=== PATIENT | male | born 1980 | race Hispanic/Latino ===

== ENCOUNTER 2021-07-30 13:11 | Emergency (ER) | payer SELFPAY ==
--- NOTE | 2021-07-30 13:41 | ER ---
Nurse's Notes [facility] Name: Del Peoples Age: 41 yrs Sex: Male : 1980 Arrival Date: 07/30/2021 Time: 13:13 Bed 9 Private MD: Diagnosis: Other infective otitis externa, left ear Presentation: 07/30 13:23 Chief complaint: Patient states: left ear pain since yesterday and throat is hurting. iw Coronavirus screen: At this time, the client does not indicate any symptoms associated with coronavirus-19. Ebola Screen: Patient negative for fever greater than or equal to 101.5 degrees Fahrenheit, and additional compatible Ebola Virus Disease symptoms Patient denies exposure to infectious person. Patient denies travel to an Ebola-affected area in the 21 days before illness onset. No symptoms or risks identified at this time. Initial Sepsis Screen: Does the patient meet any 2 criteria? No. Patient's initial sepsis screen is negative. Does the patient have a suspected source of infection? No. Patient's initial sepsis screen is negative. Risk Assessment: Do you want to hurt yourself or someone else? Patient reports no desire to harm self or others. Onset of symptoms was July 29, 2021. 13:23 Method Of Arrival: Ambulatory iw 13:23 Acuity: ISRA 4 iw Historical: - Allergies: 13:24 No Known Allergies; iw - Home Meds: 13:24 None [Active]; iw - PMHx: 13:24 None; iw - PSHx: 13:24 None; iw - Immunization history:: Adult Immunizations unknown, Client reports having NOT received the Covid vaccine. - Social history:: Smoking status: Patient denies any tobacco usage or history of. Screenin:25 Abuse screen: Denies threats or abuse. Nutritional screening: No deficits noted. tw2 Tuberculosis screening: No symptoms or risk factors identified. Fall Risk None identified. Assessment: 13:24 General: Appears in no apparent distress. Behavior is calm, cooperative, appropriate tw2 for age. Pain: Pain: Complains of pain in left ear. 13:31 Neuro: Level of Consciousness is awake, alert, obeys commands, Oriented to person, tw2 place, time, situation. Respiratory: Airway is patent Respiratory effort is even, unlabored, Respiratory pattern is regular, symmetrical. EENT: Reports pain in left ear. 13:33 Reassessment: provider at bedside at this time. tw2 13:46 Reassessment: Patient appears in no apparent distress at this time. No changes from tw2 previously documented assessment. Patient and/or family updated on plan of care and expected duration. Pain level reassessed. Patient is alert, oriented x 3, equal unlabored respirations, skin warm/dry/pink. Vital Signs: 13:23 BP 127 / 77; Pulse 76; Resp 16; Temp 99.1; Pulse Ox 96% on R/A; Weight 99.79 kg; Height iw 5 ft. 10 in. (177.80 cm); 13:23 Body Mass Index 31.57 (99.79 kg, 177.80 cm) iw ED Course: 13:13 Patient arrived in ED. as 13:24 Triage completed. iw 13:24 Bed in low position. Call light in reach. tw2 13:25 Mimi Ramirez RN is Primary Nurse. tw2 13:28 Nba Mauro PA is PHCP. jr8 13:28 Mio Son MD is Attending Physician. jr8 13:30 Arm band placed on. tw2 13:46 No provider procedures requiring assistance completed. Patient did not have IV access tw2 during this emergency room visit. Administered Medications: No medications were administered Outcome: 13:40 Discharge ordered by . jr8 13:46 Discharged to home ambulatory. tw2 13:46 Condition: stable 13:46 Discharge instructions given to patient, Instructed on discharge instructions, follow up and referral plans. medication usage, Demonstrated understanding of instructions, follow-up care, medications, Prescriptions given X 1. 13:46 Patient left the ED. tw2 Signatures: Maria De Jesus Gutierrez Irene RN RN iw Nba Mauro PA PA jr8 Mimi Ramirez RN RN tw2 Corrections: (The following items were deleted from the chart) 13:24 13:24 PSHx: Unable to Obtain; iw iw 13:32 13:24 Pain: tw2 tw2
--- NOTE | 2021-07-30 13:41 | EDPHYS ---
Physician Documentation [facility] Name: Del Peoples Age: 41 yrs Sex: Male : 1980 Arrival Date: 07/30/2021 Time: 13:13 Bed 9 Private MD: ED Physician Mio Son HPI: 07/30 13:38 This 41 yrs old Male presents to ER via Ambulatory with complaints of Ear Pain.jr8 13:38 The patient presents with pain, tenderness. The complaints affect the left ear. Onset: jr8 The symptoms/episode began/occurred gradually, 2 day(s) ago. Modifying factors: The symptoms are alleviated by nothing, the symptoms are aggravated by touching. Associated signs and symptoms: The patient has no apparent associated signs or symptoms. Severity of symptoms: At their worst the symptoms were moderate in the emergency department the symptoms are unchanged. The patient has not experienced similar symptoms in the past. The patient has not recently seen a physician. Historical: - Allergies: 13:24 No Known Allergies; iw - Home Meds: 13:24 None [Active]; iw - PMHx: 13:24 None; iw - PSHx: 13:24 None; iw - Immunization history:: Adult Immunizations unknown, Client reports having NOT received the Covid vaccine. - Social history:: Smoking status: Patient denies any tobacco usage or history of. ROS: 13:38 Eyes: Negative for injury, pain, redness, and discharge, Neck: Negative for injury, jr8 pain, and swelling, Cardiovascular: Negative for chest pain, palpitations, and edema, Respiratory: Negative for shortness of breath, cough, wheezing, and pleuritic chest pain, Abdomen/GI: Negative for abdominal pain, nausea, vomiting, diarrhea, and constipation, Back: Negative for injury and pain, MS/Extremity: Negative for injury and deformity, Skin: Negative for injury, rash, and discoloration, Neuro: Negative for headache, weakness, numbness, tingling, and seizure. 13:38 ENT: Positive for drainage from ear(s), ear pain. Exam: 13:38 Constitutional: This is a well developed, well nourished patient who is awake, alert, jr8 and in no acute distress. Head/Face: Normocephalic, atraumatic. Neck: Trachea midline, no thyromegaly or masses palpated, and no cervical lymphadenopathy. Supple, full range of motion without nuchal rigidity, or vertebral point tenderness. No Meningismus. Cardiovascular: Regular rate and rhythm with a normal S1 and S2. No gallops, murmurs, or rubs. Normal PMI, no JVD. No pulse deficits. Respiratory: Lungs have equal breath sounds bilaterally, clear to auscultation and percussion. No rales, rhonchi or wheezes noted. No increased work of breathing, no retractions or nasal flaring. Skin: Warm, dry with normal turgor. Normal color with no rashes, no lesions, and no evidence of cellulitis. MS/ Extremity: Pulses equal, no cyanosis. Neurovascular intact. Full, normal range of motion. Neuro: Awake and alert, GCS 15, oriented to person, place, time, and situation. Cranial nerves II-XII grossly intact. Motor strength 5/5 in all extremities. Sensory grossly intact. 13:38 ENT: External ear(s): pain with movement, that is moderate, of the left ear lobe and left ear canal, Ear canal(s): erythema, that is moderate, of the left canal, purulent discharge, that is moderate, in the left canal, swelling, that is moderate, of the left canal, TM's: are normal, Examination of the other ear shows no obvious abnormality, Nose: is normal, Mouth: is normal, Posterior pharynx: is normal. Vital Signs: 13:23 BP 127 / 77; Pulse 76; Resp 16; Temp 99.1; Pulse Ox 96% on R/A; Weight 99.79 kg; Height iw 5 ft. 10 in. (177.80 cm); 13:23 Body Mass Index 31.57 (99.79 kg, 177.80 cm) iw MDM: 13:28 Patient medically screened. [facility] 13:38 Data reviewed: vital signs, nurses notes, and as a result, I will discharge patient. jr8 Data interpreted: Pulse oximetry: on room air is 96 %. Interpretation: normal. Counseling: I had a detailed discussion with the patient and/or guardian regarding: the historical points, exam findings, and any diagnostic results supporting the discharge/admit diagnosis, the need for outpatient follow up, a family practitioner, to return to the emergency department if symptoms worsen or persist or if there are any questions or concerns that arise at home. Administered Medications: No medications were administered Disposition: 17:25 Co-signature as Attending Physician, Mio Son MD I agree with the assessment and kdr plan of care. Disposition Summary: 07/30/21 13:40 Discharge Ordered Location: Home jr8 Problem: new jr8 Symptoms: have improved jr8 Condition: Stable jr8 Diagnosis - Other infective otitis externa, left ear jr8 Followup: jr8 - With: Private Physician - When: 2 - 3 days - Reason: Recheck today's complaints, Continuance of care, Re-evaluation by your physician Discharge Instructions: - Ear Drops, Adult jr8 - Otitis Externa jr8 - Discharge Summary Sheet tw2 Forms: - Medication Reconciliation Form jr8 - Thank You Letter jr8 - Work release form tw2 - Antibiotic Education jr8 - Prescription Opioid Use jr8 Prescriptions: - Ciprodex 0.3-0.1 % Otic Drops, Suspension - instill 4 drops by OTIC route every 12 hours for 7 days , for ears ONLY; 1 jr8 Container; Refills: 0, Product Selection Permitted Signatures: Mio Son MD MD kdr Gwen Conklin, DIONY RN iw Nba Mauro PA PA jr8 Corrections: (The following items were deleted from the chart) 13:24 13:24 PSHx: Unable to Obtain; zarina srinivasan
[2021-07-30 13:55] VITALS: BP 127/77; TEMP 99.1; O2SAT 96
== END 2021-07-30 13:46 | disposition home or self-care (01) ==
LOC: ER 13:11
DX: H60.392 Other infective otitis externa, left ear (principal)
CPT/HCPCS: 99282

== ENCOUNTER 2022-04-07 18:55 | Emergency (ER) | payer SELFPAY ==
[2022-04-07] MEDS ORDERED: TETANUS & DIPHTHERIA TOX,ADULT 0.5 ML VIAL ONE (20:11)
[2022-04-07] MEDS ORDERED: HYDROCODONE/APAP 7.5/325 MG TAB ONE (21:10)
[2022-04-07] MEDS ORDERED: IBUPROFEN 400 MG TAB ONE (21:10)
--- NOTE | 2022-04-07 21:11 | RAD REPORT ---
EXAM DESCRIPTION: RAD - Hand Left 3 View - 04/07/2022 8:56 pm CLINICAL HISTORY: DEFORMITY COMPARISON: No comparisons FINDINGS: Soft tissue swelling affects the third finger. Fracture is present involving the distal ph alanx of the third finger.
[2022-04-07] MEDS ORDERED: LIDOCAINE 1% MPF 5 ML VIAL ONE (21:53)
[2022-04-07] MEDS ORDERED: BUPIVACAINE 0.5% PF 10 ML VIAL ONE (21:53)
[2022-04-07] MEDS ORDERED: CEFAZOLIN SODIUM 1 GM/VIAL ONE (23:22)
[2022-04-07] MEDS ORDERED: HYDROCODONE/APAP 5/325 MG TAB ONE (23:23)
[2022-04-07] MEDS ORDERED: WATER FOR INJ,STERILE 10 ML ONE (23:25)
--- NOTE | 2022-04-07 23:30 | ER ---
Nurse's Notes [facility] Name: Del Peoples Age: 42 yrs Sex: Male : 1980 Arrival Date: 04/07/2022 Time: 18:58 Bed DIS5 Private MD: Diagnosis: Displaced fracture of distal phalanx of left middle finger-open Presentation: 04/07 19:23 Chief complaint: Patient states: PATIENT REPORTS SMASHING HIS LEFT 3RD FINGER IN SOME [facility] WEIGHTS AROUND 5 PM TODAY AT GYM. Coronavirus screen: Vaccine status: Patient reports receiving the 2nd dose of the covid vaccine. At this time, the client does not indicate any symptoms associated with coronavirus-19. Ebola Screen: Patient negative for fever greater than or equal to 101.5 degrees Fahrenheit, and additional compatible Ebola Virus Disease symptoms. Initial Sepsis Screen: Does the patient meet any 2 criteria? No. Patient's initial sepsis screen is negative. Does the patient have a suspected source of infection? No. Patient's initial sepsis screen is negative. Risk Assessment: Do you want to hurt yourself or someone else? Patient reports no desire to harm self or others. Onset of symptoms was April 07, 2022. 19:23 Method Of Arrival: Ambulatory [facility] 19:23 Acuity: ISRA 4 [facility] Triage Assessment: 19:27 General: Appears in no apparent distress. uncomfortable, Behavior is calm, cooperative, [facility] appropriate for age. Pain: Complains of pain in left hand. Musculoskeletal: Capillary refill < 3 seconds, Swelling. Injury Description: Crush injury sustained to dorsal aspect of distal phalanx of right middle finger. Historical: - Allergies: 19:27 NKDA; [facility] - Home Meds: 19:27 None [Active]; 1 - PMHx: 19:27 None; [facility] - PSHx: 19:27 None; [facility] - Immunization history:: Adult Immunizations up to date. - Social history:: Smoking status: Patient denies any tobacco usage or history of. Screenin:13 Abuse screen: Denies threats or abuse. Nutritional screening: No deficits noted. bb Tuberculosis screening: No symptoms or risk factors identified. Fall Risk None identified. Assessment: 21:13 General: Appears in no apparent distress. uncomfortable, Behavior is calm, cooperative. bb Pain: Complains of pain in dorsal aspect of distal phalanx of right middle finger. Neuro: Level of Consciousness is awake, alert, obeys commands, Oriented to person, place, time, situation. Cardiovascular: Capillary refill < 3 seconds Patient's skin is warm and dry. Respiratory: Respiratory effort is even, unlabored. GI: No signs and/or symptoms were reported involving the gastrointestinal system. Derm: Skin is pink, warm \T\ dry. Musculoskeletal: Circulation, motion, and sensation intact. Swelling present in dorsal aspect of distal phalanx of right middle finger Reports pain in dorsal aspect of distal phalanx of right middle finger. 23:46 Reassessment: Patient is alert, oriented x 3, equal unlabored respirations, skin bb warm/dry/pink. splint in place to left middle finger pt verbalized understanding of and agrees to plan of care discharge instructions given pt ambulated with steady gait to exit accompanied by family. Vital Signs: 19:23 BP 125 / 79; Pulse 58; Resp 20; Temp 98.5(O); Pulse Ox 100% on R/A; Weight 95.25 kg; 1 Height 5 ft. 10 in. (177.80 cm); Pain 5/10; 23:47 BP 132 / 76; Pulse 54; Resp 16 S; Pulse Ox 98% on R/A; bb 19:23 Body Mass Index 30.13 (95.25 kg, 177.80 cm) [facility] ED Course: 18:58 Patient arrived in ED. as 19:26 Triage completed. 1 19:27 Arm band placed on right wrist. [facility] 19:50 Josiah Saleh PA is PHCP. cp 19:50 Mio Son MD is Attending Physician. cp 20:44 Jacklyn Alvares RN is Primary Nurse. bb 20:58 Hand Left 3 View XRAY In Process Unspecified. EDMS 21:13 Patient has correct armband on for positive identification. bb 23:29 Yaron Das MD is Referral Physician. cp 23:37 middle finger wrapped with a 4x4, covered with tube gauze and an venkatesh wrap with finger bb splint. Wound care:. 23:47 No provider procedures requiring assistance completed. Patient did not have IV access bb during this emergency room visit. Administered Medications: 20:08 Drug: Tetanus-Diphtheria Toxoid Ped 0.5 ml {Clamp Truck Driver: Micromuscle. Exp: bh1 12/05/2023. Lot #: [id number]. } Route: IM; Site: right deltoid; 20:09 Follow up: Response: No adverse reaction bh1 21:04 Drug: Ibuprofen 800 mg Route: PO; bb 23:07 Follow up: Response: No adverse reaction bb 21:04 Not Given (Patient Refused): Hydrocodone-Acetaminophen (7.5 mg-325 mg) 1 tabs PO once; bb RASS on ADMIN: Combtv4, Very Agttd3, Agttd2, Rstlss1, AlertClm0, Drwsy-1, Lt Sdtn-2, Mod Sdtn-3, Dp Sdtn-4, UnArsble-5 22:40 Drug: Lidocaine (1 %) 10 ml {Note: by Josiah RICHTER to affected area.} Route: bb Infiltration; 23:08 Follow up: Response: No adverse reaction bb 22:40 Drug: Marcaine (bupivacaine) (0.5 %) 10 ml {Note: by Josiah RICHTER to affected area.} bb Volume: 10 ml; Route: Infiltration; 23:08 Follow up: Response: No adverse reaction bb 23:24 Drug: Ancef (cefazolin) 1 grams Route: IM; Site: right gluteus; bb 23:37 Follow up: Response: No adverse reaction bb 23:24 Drug: [place] (HYDROcodone-acetaminophen) 5 mg-325 mg 2 tabs Route: PO; bb 23:37 Follow up: Response: No adverse reaction bb Medication: 21:35 Vaccine Information Statement (VIS) provided today. Questions and/or concerns bb addressed. VIS edition date: April 17, 2021. Outcome: 23:30 Discharge ordered by . khoa 23:48 Discharged to home ambulatory, with family. bb 23:48 Condition: stable 23:48 Discharge instructions given to patient, Instructed on discharge instructions, follow up and referral plans. no driving heavy equipment, medication usage, wound care, Demonstrated understanding of instructions, follow-up care, medications, wound care, Prescriptions given X 3. 23:48 Patient left the ED. bb Signatures: Dispatcher [employer] Maria De Jesus Gu Brenda RN RN bb Page, Josiah, PA PA cp King, Hilda, RN RN bh1
--- NOTE | 2022-04-07 23:31 | EDPHYS ---
Physician Documentation [facility] Name: Del Peoples Age: 42 yrs Sex: Male : 1980 Arrival Date: 04/07/2022 Time: 18:58 Bed DIS5 Private MD: ED Physician Mio Son HPI: 04/07 20:00 This 42 yrs old Male presents to ER via Ambulatory with complaints of Finger cp Injury. 20:00 The patient or guardian reports injury, pain, swelling, tenderness. The complaints cp affect the distal phalanx left middle finger. 20:00 Context: resulted from a crush injury, weights while at gym earlier today. Onset: The cp symptoms/episode began/occurred today. Associated signs and symptoms: Pertinent positives: decreased sensation distally, Pertinent negatives: cyanosis distally. Severity of symptoms: in the emergency department the symptoms are unchanged. Historical: - Allergies: 19:27 NKDA; bh1 - Home Meds: 19:27 None [Active]; bh1 - PMHx: 19:27 None; bh1 - PSHx: 19:27 None; bh1 - Immunization history:: Adult Immunizations up to date. - Social history:: Smoking status: Patient denies any tobacco usage or history of. ROS: 20:05 Constitutional: Negative for body aches, chills, fever, poor PO intake. cp 20:05 Eyes: Negative for injury, pain, redness, and discharge. cp 20:05 Neck: Negative for pain with movement, pain at rest, stiffness. 20:05 Cardiovascular: Negative for chest pain, palpitations. 20:05 Respiratory: Negative for cough, shortness of breath, wheezing. 20:05 Abdomen/GI: Negative for abdominal pain, nausea, vomiting, and diarrhea. 20:05 MS/extremity: Positive for injury or acute deformity, decreased range of motion, ecchymosis, pain, paresthesias, swelling, tenderness, of the distal phalanx left middle finger. 20:05 Neuro: Negative for altered mental status, dizziness, headache, weakness. 20:05 All other systems are negative. Exam: 20:10 Constitutional: The patient appears in no acute distress, alert, awake, non-toxic, well cp developed, well nourished, uncomfortable. 20:10 Head/Face: Normocephalic, atraumatic. cp 20:10 Neck: ROM/movement: is normal, is supple, without pain, no range of motions limitations. 20:10 Chest/axilla: Inspection: normal. 20:10 Cardiovascular: Rate: normal, Rhythm: regular. 20:10 Respiratory: the patient does not display signs of respiratory distress, Respirations: normal, no use of accessory muscles, no retractions. 20:10 Musculoskeletal/extremity: Extremities: grossly normal except: noted in the distal phalanx left middle finger: decreased ROM, deformity, ecchymosis, pain, separation of proximal nail and nail bed, ROM: limited passive range of motion due to pain, in the distal phalanx left middle finger, Perfusion: the extremity is with brisk capillary refill, the distal phalanx left middle finger decreased sensation. Vital Signs: 19:23 BP 125 / 79; Pulse 58; Resp 20; Temp 98.5(O); Pulse Ox 100% on R/A; Weight 95.25 kg; bh1 Height 5 ft. 10 in. (177.80 cm); Pain 5/10; 23:47 BP 132 / 76; Pulse 54; Resp 16 S; Pulse Ox 98% on R/A; bb 19:23 Body Mass Index 30.13 (95.25 kg, 177.80 cm) 1 Procedures: 23:33 Performed Repair of nailbed. Digital block performed using 50/50 mixture 1% lidocaine cp w/o epi and 0.5% Sensorcaine. Nail of left middle finger removed. Nailbed placed proximally, nail replaced and stitched down using 4-0 Prolene and 2 sutures placed. Patient tolerated well. MDM: 20:33 Patient medically screened. cp 21:00 Differential diagnosis: dislocation, open fracture, closed fracture, contusion, cp amputation. 23:30 Data reviewed: vital signs, nurses notes, radiologic studies, plain films. cp 23:30 Test interpretation: by ED physician or midlevel provider: plain radiologic studies. cp Counseling: I had a detailed discussion with the patient and/or guardian regarding: the historical points, exam findings, and any diagnostic results supporting the discharge/admit diagnosis, radiology results, the need for outpatient follow up, for definitive care, a hand specialist, to return to the emergency department if symptoms worsen or persist or if there are any questions or concerns that arise at home. Response to treatment: the patient's symptoms have markedly improved after treatment, and as a result, I will discharge patient. 04/07 19:30 Order name: Hand Left 3 View XRAY; Complete Time: 23:28 [facility] 04/07 23:28 Interpretation: Report reviewed. cp 04/07 23:01 Order name: Wound dressing; Complete Time: 23:37 cp 04/07 23:01 Order name: Splint - Finger: sugar tong type; Complete Time: 23:37 cp Administered Medications: 20:08 Drug: Tetanus-Diphtheria Toxoid Ped 0.5 ml {Machine Long Goods Helper: Novalux. Exp: 1 12/05/2023. Lot #: [id number]. } Route: IM; Site: right deltoid; 20:09 Follow up: Response: No adverse reaction [facility] 21:04 Drug: Ibuprofen 800 mg Route: PO; bb 23:07 Follow up: Response: No adverse reaction bb 21:04 Not Given (Patient Refused): Hydrocodone-Acetaminophen (7.5 mg-325 mg) 1 tabs PO once; bb RASS on ADMIN: Combtv4, Very Agttd3, Agttd2, Rstlss1, AlertClm0, Drwsy-1, Lt Sdtn-2, Mod Sdtn-3, Dp Sdtn-4, UnArsble-5 22:40 Drug: Lidocaine (1 %) 10 ml {Note: by Josiah RICHTER to affected area.} Route: bb Infiltration; 23:08 Follow up: Response: No adverse reaction bb 22:40 Drug: Marcaine (bupivacaine) (0.5 %) 10 ml {Note: by Josiah RICHTER to affected area.} bb Volume: 10 ml; Route: Infiltration; 23:08 Follow up: Response: No adverse reaction bb 23:24 Drug: Ancef (cefazolin) 1 grams Route: IM; Site: right gluteus; bb 23:37 Follow up: Response: No adverse reaction bb 23:24 Drug: [place] (HYDROcodone-acetaminophen) 5 mg-325 mg 2 tabs Route: PO; bb 23:37 Follow up: Response: No adverse reaction bb Disposition Summary: 04/07/22 23:30 Discharge Ordered Location: Home cp Problem: new cp Symptoms: have improved cp Condition: Stable cp Diagnosis - Displaced fracture of distal phalanx of left middle finger - open cp Followup: cp - With: Yaron Das MD - When: 1 - 2 days - Reason: Wound Recheck Discharge Instructions: - Discharge Summary Sheet cp - Finger Fracture, Adult cp Forms: - Work release form bb - Medication Reconciliation Form cp - Thank You Letter cp - Antibiotic Education cp - Prescription Opioid Use cp Prescriptions: - Cephalexin 500 mg Oral Capsule - take 1 capsule by ORAL route every 6 hours for 10 days; 40 capsule; Refills: 0, cp Product Selection Permitted - Naprosyn 500 mg Oral Tablet - take 1 tablet by ORAL route 2 times per day take with food; 20 tablet; Refills: cp 0, Product Selection Permitted - Tylenol-Codeine #3 300 mg-30 mg Oral - take 2 tablet by ORAL route every 8-10 hours; 20 tablet; Refills: 0, Product cp Selection Permitted Addendum: 04/12/2022 19:35 Co-signature as Attending Physician, Mio Son MD I agree with the assessment and k dr plan of care. Signatures: Dispatcher [employer] EDWI Mio Son MD MD [facility] Jacklyn Alvares, RN RN bb Josiah Saleh PA PA cp Hilda King, RN RN bh1 Corrections: (The following items were deleted from the chart) 04/08 20:17 04/07 23:55 Performed Repair of nailbed. Digital block performed using 50/50 mixture 1% cp lidocaine w/o epi and 0.5% Sensorcaine. Nail of left middle finger removed. Nailbed placed proximally, nail replaced and stitched down using 4-0 Prolene and 2 sutures placed. Patient tolerated well. cp
[2022-04-08 02:06] VITALS: TEMP 98.5
[2022-04-08 02:10] VITALS: BP 132/76; O2SAT 98
== END 2022-04-07 23:48 | disposition home or self-care (01) ==
LOC: ER 18:55
PROC: 0HQQXZZ Repair Finger Nail, External Approach (ICD-10-PCS; principal; 2022-04-07)
PROC: 2W3KX1Z Immobilization of Left Finger using Splint (ICD-10-PCS; 2022-04-07)
DX: S62.633B Displaced fracture of distal phalanx of left middle finger, initial encounter for open fracture (principal); Z23 Encounter for immunization
CPT/HCPCS: 90471; 90714; 96372; 99284; J0690

== ENCOUNTER 2023-03-20 10:27 | Emergency (ER) | payer BC, SELFPAY ==
[2023-03-20] MEDS ORDERED: ONDANSETRON 4 MG/2 ML VIAL ONE (10:59)
[2023-03-20] MEDS ORDERED: MORPHINE 4 MG/ML SYR ONE (10:59)
[2023-03-20] MEDS ORDERED: NA CHLORIDE 0.9% 1,000 ML ONE (10:59)
[2023-03-20 11:19] LABS: Absolute Lymphocytes (CBC) 1.2 K/uL (0.7-4.9); Hematocrit 45.9 % (39.6-49.0); Lymphocytes % 10.5 % (15.3-44.8); MCV 86.9 fL (80-100); MPV 8.7 fL (7.6-11.3); RBC Red Blood Cell Count 5.28 M/uL (4.33-5.43)
[2023-03-20 11:27] LABS: Protime INR 1.08
[2023-03-20 11:37] LABS: Potassium 3.9 mEq/L (3.5-5.1)
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
[2023-03-20] MEDS ORDERED: KETOROLAC 30 MG/ML INJ ONE (12:44)
[2023-03-20 13:49] VITALS: TEMP 98.3
[2023-03-20 13:51] VITALS: O2SAT 100
[2023-03-20 13:53] VITALS: BP 127/91
== END 2023-03-20 13:31 | disposition home or self-care (01) ==
LOC: ER 10:27
PROC: 2W3MX1Z Immobilization of Left Lower Extremity using Splint (ICD-10-PCS; principal; 2023-03-20)
DX: S82.52XA Displaced fracture of medial malleolus of left tibia, initial encounter for closed fracture (principal); S23.41XA Sprain of ribs, initial encounter; Y04.8XXA Assault by other bodily force, initial encounter
CPT/HCPCS: 96361; 85025; 80048; 36415; 86900; 86850; 85610; 86901; 85730; 70450; 72125; 71260; 74177; 73590; 73610; 96375; 96374; 99285; 29515; Q9967; J2405; J7030

== ENCOUNTER 2023-03-25 09:15 | Day surgery (SDC) | payer BC, SELFPAY ==
[2023-03-25 09:24] LABS: Absolute Lymphocytes (CBC) 1.8 K/uL (0.7-4.9); Hematocrit 50.2 % (39.6-49.0); Lymphocytes % 26.6 % (15.3-44.8); MCV 88.3 fL (80-100); MPV 8.4 fL (7.6-11.3); RBC Red Blood Cell Count 5.68 M/uL (4.33-5.43)
[2023-03-25 09:40] LABS: Potassium 3.9 mEq/L (3.5-5.1)
[2023-03-25] MEDS ORDERED: Ringers Lactate 1,000 ML IV ONE (09:58)
[2023-03-25] MEDS ORDERED: CEFAZOLIN SODIUM 1 GM/VIAL ONE (09:58)
[2023-03-25] MEDS ORDERED: FENTANYL CITR 100 MCG/2 ML ONE ×2 (10:00→12:46)
[2023-03-25] MEDS ORDERED: LIDOCAINE 2% MPF 5 ML VIAL ONE ×2 (10:00→11:10)
[2023-03-25] MEDS ORDERED: MIDAZOLAM HCL 2 MG/2 ML INJ ONE (10:01)
[2023-03-25] MEDS ORDERED: EPINEPHRINE/PF 1 MG/ML AMP ONE (10:02)
[2023-03-25] MEDS ORDERED: dexAMETHasone 4 MG/ML VIAL ONE (10:03)
[2023-03-25] MEDS ORDERED: propofoL 200 MG/20 ML VIAL IV ONE (11:10)
[2023-03-25] MEDS ORDERED: KETOROLAC 30 MG/ML INJ ONE (11:11)
[2023-03-25] MEDS ORDERED: ONDANSETRON 4 MG/2 ML VIAL ONE ×2 (11:13→14:39)
--- NOTE | 2023-03-25 12:50 | EKG ---
Test Date: 2023-03-25 Test Time: 09:03:15 Chair Upholsterer: NISH MEASUREMENT RESULTS: Intervals: Rate: 65 RI: 148 QRSD: 88 QT: 384 QTc: 399 [place]: P: 47 RI: 148 QRS: 32 T: 24 INTERPRETIVE STATEMENTS: Normal sinus rhythm Early repolarization Normal ECG No previous ECG available for comparison Electronically Signed On 03-25-23 12:49:27 CDT by Ernesto Obregon
[2023-03-25] MEDS: HYDROMORPHONE HCL 1 MG/ML INJ ONE ×4 (13:29→13:58)
[2023-03-25] MEDS ORDERED: MEPERIDINE HCL 25 MG/ML SYR ONE (13:42)
[2023-03-25 15:14] VITALS: BP 120/83; TEMP 97; O2SAT 99
--- NOTE | 2023-03-25 17:15 | RAD REPORT ---
EXAM DESCRIPTION: RAD - Fluoroscopy <1 Hour - 03/25/2023 4:37 pm CLINICAL HISTORY: ORIF LEFT ANKLE COMPARISON: No comparisons FINDINGS/IMPRESSION: Eight intraoperative fluoroscopic images demonstrating ORIF of ankle fracture. Improved alignment. No hardware complications. Dose: 1.98 mGy Time: 1.1 minutes
--- NOTE | 2023-03-25 23:50 | OP ---
Date of Procedure: 03/25/2023 Surgeon: Tay Vargas MD Preoperative Diagnosis: Left medial malleolus fracture with possible syndesmotic disruption. Procedure: Left medial malleolus fracture open reduction and internal fixation with placement of syn desmotic screw for syndesmotic fixation. Estimated Blood Loss: 20 cc. Complications: There were no complications. Indications For Operation: Mr. Peoples is a gentleman who unfortunately had an injury to his left l ower extremity. He was seen and examined in the emergency department, where he was placed into a spl int. He was seen in my office. He has an obvious displaced medial malleolus fracture. On close ins pection of AP and lateral of the leg, he does have a spiral oblique fracture of the proximal fibula. When asked of his exact mechanism of injury, he is not completely able to tell us which direction hi s ankle went and basically has significant injury. There is a possibility the fibula is a direct blo w. However, it is suspicious for syndesmotic disruption with a Maisonneuve type fracture. Risks, be nefits, and alternatives to different methods of treating has been discussed with the patient simrani ng the possibility placement of syndesmotic screw and open reduction and internal fixation of medial malleolus. He states he understands things as presented and wishes to proceed. Description Of Procedure: Patient was taken to the operating room, placed in supine position. Gener al anesthesia was obtained by the staff. Following this, a well-padded tourniquet was placed on supe rior left thigh. Left lower extremity was then prepped and draped in usual sterile fashion. After t his, the leg was elevated, but not exsanguinated. Tourniquet was raised. A standard medial incision was taken down carefully through skin and soft tissues. Meticulous hemostasis being maintained usin g Bovie electrocautery. This leads down to the fracture site. There was a significant amount of per iosteum and anterior fracture debris, which was removed. This allowed for placement of a clamp and r eduction. There was some consideration of placing a buttress plate based on fracture pattern, howeve r, did appear to be oblique enough that compression screws should provide enough stability. Therefor e, 2 cannulated screws from the Acumed ankle set were then placed in standard fashion. This allowed for very good reduction both on x-rays as well as visual inspection with good compression. After thi s, the wound was irrigated. The skin was closed using interrupted Vicryl sutures followed by maia . Attention was then turned to the lateral aspect. Decision was made to place a syndesmotic screw a nd it was highly suspicious for syndesmotic injury and a small incision was made at what was felt to be appropriate level. The fibula was then cleared using a hemostat. It did appear that the fibula w as brought down to appropriate length after correction of the medial malleolar displacement and fibul a was then drilled as well as the tibia. After this was measured and syndesmotic screw was placed, p lacement of syndesmotic screw did not have good fixation in the fibula necessitating a larger incisio n demonstrating the screw was more anterior than I would like. Therefore, this screw was removed and further dissection was used to ensure that an additional screw, which was more distal was placed in the center of the fibula and also proceeded across the tibia. This was placed without difficulty and it was checked with biplanar C-arm radiography using a Galindo clamp for compression. After this, thi s wound was irrigated and skin was closed using Vicryl followed by maia. Patient was then placed in an extremely well-padded sterile dressing as well as a posterior splint in view. He was then take n to recovery room in good condition. There were no complications. /MYKE Voice ID: [id number] Report ID: [id number]
== END 2023-03-25 15:25 | disposition home or self-care (01) ==
LOC: OR 09:15
PROVIDERS: ATTEND Orthopaedic Surgery
PROC: 0QSH04Z Reposition Left Tibia with Internal Fixation Device, Open Approach (ICD-10-PCS; principal; 2023-03-25 11:30)
DX: S82.52XA Displaced fracture of medial malleolus of left tibia, initial encounter for closed fracture (principal)
CPT/HCPCS: 36415; 76000; 80048; 85025; 93005; J0171; J0690; J1100; J1170; J2001; J2175; J2250; J2405; J2704; J3010; J7120

== ENCOUNTER 2025-01-19 21:46 | Emergency (ER) | payer BC, SELFPAY ==
--- OUTSIDE RECORDS SUMMARY | 2025-01-19 21:48 | XMS REPORT | Continuity of Care Document ---
Author Name Unknown Address [address] [facility] [address] [place] [address] [facility] [place] Address [address] [facility] [address] [place] [address] Care Team Providers Care Relay Checker Name Role Phone Rose Crockett Primary Care Physician Medications Ordered Medication Name Filled Medication Name Start Date Stop Date Current Medication? Ordering Clinician Indication Dosage Frequency Signature (SIG) Comments Components Source diclofenac potassium 50 mg tablet 2023-09 00:00: 00 Yes 1mg Joey F Sixto meclizine 25 mg tablet 2023-09 00:00: 00 Yes 1mg Joey F Sixto Vital Signs Vital Name Observation Time Observation Value Comments S ource Heart Rate 2024-07-21 13:42:00 65.00 /min Kim en F Sixto Respiratory Rate 2024-07-21 13:42:00 18.00 /min Joey F Sixto BP Systolic 2024-07-21 13:42:00 139 mm[Hg] Step hen F Sixto BP Diastolic 2024-07-21 13:42:00 87 mm[Hg] Martin phen F Sixto Weight Measured 2024-07-21 13:42:00 206.20 pounds Joey F Sixto Height Measured 2024-07-21 13:42:00 69.88 inches Joey F Sixto Body Temperature 2024-07-21 13:42:00 98.40 degrees Joey F Sixto BP Systolic 2024-07-17 16:31:00 126 mm[Hg] Step hen F Sixto BP Diastolic 2024-07-17 16:31:00 77 mm[Hg] Martin phen F Sixto Weight Measured 2024-07-17 16:31:00 207.20 pounds Joey F Sixto Height Measured 2024-07-17 16:31:00 69.88 inches Joey Henson Body Temperature 2024-07-17 16:31:00 98.30 degrees Joey Henson Heart Rate 2024-07-17 16:31:00 67.00 /min Kim en Stefanie Henson Respiratory Rate 2024-07-17 16:31:00 18.00 /min Joey Henson BP Systolic 2021-08-07 15:11:00 125 mm[Hg] Step hen Stefanie Henson BP Diastolic 2021-08-07 15:11:00 82 mm[Hg] Martin Henson Weight Measured 2021-08-07 15:11:00 221.20 pounds Joey Henson Height Measured 2021-08-07 15:11:00 69.88 inches Joey Henson Body Temperature 2021-08-07 15:11:00 98.20 degrees Joey Henson Heart Rate 2021-08-07 15:11:00 75.00 /min Kim en Stefanie Henson Respiratory Rate 2021-08-07 15:11:00 Joey Henson Encounters Start Date/Time End Date/Time Encounter Type Admission Type Attending [facility] Care Department Encounter ID Source 2024-07-21 13:35:43 2024-07-21 13:35:43 Outpatient [facility] [id number] Joey Henson 2024-07-21 00:00:00 2024-07-21 00:00:00 Outpatient Visit [facility] [id number] Joey Henson 2024-07-17 16:16:22 2024-07-17 16:16:22 Outpatient [facility] [id number] Joey Henson 2024-07-17 00:00:00 2024-07-17 00:00:00 Outpatient Visit [facility] [id number] Joey Henson Results Test Description Test Time Test Comments Results Result Co mments Source HEPATITIS PANEL, [id number] 03:40:10* Test Item Value Reference Range Interpretation Comme nts HEPATITIS A IgM (test code = 07071) NON-REACTIVE NON-REACTIVE HEPATITIS B CORE IgM (test code = 4644) NON-REACTIVE NON-REACTIVE HEPATITIS B SURF AG (test code = 2739) NON-REACTIVE NON-REACTIVE HEPATITIS C ANTIBODY (test code = 4675) NON-REACTIVE NON-REACTIVE INTERPRETATION HEPATITIS A: (test code = 2552) (NOTE) Hepatitis A sero logy shows no evidence of acute hepatitis A. INTERPRETATION HEPATITIS B: (test code = 62882) (NOTE) Hepatitis B sero logy shows no evidence of acute hepatitis B andno indication of exposure to hepatitis B virus in the previous francheska eight months. INTERPRETATION HEPATITIS C: (test code = 69965) (NOTE) Hepatitis C sero logy shows no evidence of exposure to hepatitisC virus at this time. It can take up to 12 months after exposure tothe hepatitis C virus for antibodies to become detectable in the blood in certain patients. UNLESS OTHERWISE INDICATED, ALL TESTING PERFORMED AT [facility] [address] [place] [address] JOINTER SUBMARINE CABLE: SELMA MCDOWELL M.D. [place] NUMBER [id number] [facility] [place]. [id number] 00:29:15* Test Item Value Reference Range Interpretation Comme nts RPR RESULT (test code = 3501) NON-REACTIVE NON-REACTIVE RPR TITER (test code = 3500) NOT INDIC. TITER NOT INDIC. HIV 1/2 4TH GEN, RFLX [id number] 00:00:00* Test Item Value Reference Range Interpretation Comme nts HIV 1/2 4TH GEN, RFLX CONF ( test code = 3514) NON-REACTIVE Joey [id number] 00:00:00* Test Item Value Reference Range Interpretation Comme nts RPR RESULT (test code = 3501) NON-REACTIVE RPR TITER (test code = 3500) NOT INDIC. TITER Joey HensonACUTE HEPATITIS [id number] 00:00:00* Test Item Value Reference Range Interpretation Comme nts HEPATITIS A IgM (test code = 60166) NON-REACTIVE HEPATITIS B CORE IgM (test c ode = 4644) NON-REACTIVE HEPATITIS B SURF AG (test co de = 2739) NON-REACTIVE HEPATITIS C ANTIBODY (test c ode = 4675) NON-REACTIVE INTERPRETATION HEPATITIS A: (test code = 2552) (NOTE) INTERPRETATION HEPATITIS B: (test code = 18256) (NOTE) INTERPRETATION HEPATITIS C: (test code = 11311) (NOTE) Joey Watts AustinCT/NG, NAAT, [id number] 15:11:46* Test Item Value Reference Range Interpretation Comme nts CHLAMYDIA, NAAT, URINE (test code = 57190) NEGATIVE NEGATIVE Testing is perfo rmed with Andrey ROSSI 6800/8800 systems usingreal-time polymerase chain reaction (PCR) method. A negative result does not exclude low level infection, specimensampling error, or collection error. GONORRHEA, NAAT, URINE (test code = 76483) NEGATIVE NEGATIVE Testing is perfo rmed with Andrey ROSSI 6800/8800 systems usingreal-time polymerase chain reaction (PCR) method. A negative result does not exclude low level infection, specimensampling error, or collection error. LIPID [id number] 01:00:59* Test Item Value Reference Range Interpretation Comme nts CHOLESTEROL (test code = 2210) 174 MG/DL <200 TRIGLYCERIDES (test code = 2232) 132 MG/DL <150 HDL CHOLESTEROL (test code = 2220) 45 MG/DL >39 CALC LDL CHOL (test code = 2237) 106 MG/DL <100 H NOTE: CALCULATED LDL IS BASED ON FRANK-MCLEOD METHOD WHICHINCLUDES ADJUSTABLE TRIGLYCERIDE:VLDL CHOLESTEROL RATIO.THIS FACTOR VARIES BY MEASURED TRIGLYCERIDE AND NON-HDLCHOLESTEROL CONCENTRATIONS WITH INCREASED CALCULATED LDL SEENIN HIGHER TRIGLYCERIDE OR LOWER NON-HDL SPECIMENS. FOR MOREINFORMATION, SEE CLIENT ANNOUNCEMENT AT [email or web address] /[email or web address] RISK RATIO LDL/HDL (test code = 2238) 2.36 RATIO <3.55 COMPREHENSIVE METABOLIC [id number] 01:00:59* Test Item Value Reference Range Interpretation Comme nts GLUCOSE (test code = 2217) 96 MG/DL 70-99 BUN (test code = 2208) 17 MG/DL 6-20 CREATININE (test code = 2214) 1.00 MG/DL 0.80-1.40 eGFR (2020 CKD-EPI) (test co de = 76171) 96 ML/MIN/1.73 >60 CALC BUN/CREAT (test code = 2235) 17 RATIO 6-28 SODIUM (test code = 223) 140 MEQ/L 133-146 POTASSIUM (test code = 2228) 4.0 MEQ/L 3.5-5.4 CHLORIDE (test code = 2215) 102 MEQ/L 95-107 CARBON DIOXIDE (test code = 2206) 25 MEQ/L 19-31 CALCIUM (test code = 2209) 9.7 MG/DL 8.5-10.5 PROTEIN, TOTAL (test code = 2229) 7.4 G/DL 6.1-8.3 ALBUMIN (test code = 2201) 4.8 G/DL 3.5-5.2 CALC GLOBULIN (test code = 2240) 2.6 G/DL 1.9-3.7 CALC A/G RATIO (test code = 2234) 1.8 RATIO 1.0-2.6 BILIRUBIN, TOTAL (test code = 2207) 0.8 MG/DL <=1.2 ALKALINE PHOSPHATASE (test code = 2204) 90 U/L 40-119 AST (test code = 2218) 17 U/L 9-50 ALT (test code = 2219) 17 U/L 5-50 LIPID [id number] 00:00:00* Test Item Value Reference Range Interpretation Comme nts CHOLESTEROL (test code = 2210) 174 MG/DL TRIGLYCERIDES (test code = 2232) 132 MG/DL HDL CHOLESTEROL (test code = 2220) 45 MG/DL CALC LDL CHOL (test code = 2237) 106 MG/DL RISK RATIO LDL/HDL (test cod e = 2238) 2.36 RATIO Joey F AustinCOMPREHENSIVE METABOLIC [id number] 00:00:00* Test Item Value Reference Range Interpretation Comme nts GLUCOSE (test code = 2217) 96 MG/DL BUN (test code = 2208) 17 MG/DL CREATININE (test code = 2214) 1.00 MG/DL eGFR (2020 CKD-EPI) (test co de = 00444) 96 ML/MIN/1.73 CALC BUN/CREAT (test code = 2235) 17 RATIO SODIUM (test code = 2231) 140 MEQ/L POTASSIUM (test code = 2228) 4.0 MEQ/L CHLORIDE (test code = 2215) 102 MEQ/L CARBON DIOXIDE (test code = 2206) 25 MEQ/L CALCIUM (test code = 2209) 9.7 MG/DL PROTEIN, TOTAL (test code = 2229) 7.4 G/DL ALBUMIN (test code = 2201) 4.8 G/DL CALC GLOBULIN (test code = 2240) 2.6 G/DL CALC A/G RATIO (test code = 2234) 1.8 RATIO BILIRUBIN, TOTAL (test code = 2207) 0.8 MG/DL ALKALINE PHOSPHATASE (test code = 2204) 90 U/L AST (test code = 2218) 17 U/L ALT (test code = 2219) 17 U/L Joey HensonCT/NG, NAAT, [id number] 00:00:00* Test Item Value Reference Range Interpretation Comme nts CHLAMYDIA, NAAT, URINE (test code = 86692) NEGATIVE GONORRHEA, NAAT, URINE (test code = 77566) NEGATIVE Joey HensonHEMOGLOBIN [id number] 02:52:02* Test Item Value Reference Range Interpretation Comme nts HEMOGLOBIN A1c (test code = 03946) 5.2 % 4.2-5.6 HEMOGLOBIN [id number] 00:00:00* Test Item Value Reference Range Interpretation Comme nts HEMOGLOBIN A1c (test code = 32714) 5.2 % Joey Henson Notes Date/Time Note Provider Source Joey Henson [facility]2024-11-05 00:00:00 Joey [facility]
[2025-01-19] MEDS ORDERED: KETOROLAC 30 MG/ML INJ ONE (23:05)
[2025-01-19] MEDS ORDERED: dexAMETHasone 10 MG/ML VIAL ONE (23:05)
[2025-01-19] MEDS ORDERED: ONDANSETRON 4 MG/2 ML VIAL ONE (23:05)
[2025-01-19] MEDS ORDERED: FENTANYL CITR 100 MCG/2 ML ONE (23:05)
[2025-01-19] MEDS ORDERED: NA CHLORIDE 0.9% 1,000 ML ONE (23:06)
[2025-01-19] MEDS ORDERED: DIAZEPAM 5 MG TABLET ONE (23:06)
[2025-01-19 23:18] LABS: Absolute Basophils 0.1 K/uL (0-0.5); Absolute Eosinophils 0.3 K/uL (0-0.5); Absolute Lymphocytes (CBC) 2.4 K/uL (0.7-4.9); Absolute Monocytes 0.5 K/uL (0.1-1.3); Absolute Neutrophil 3.2 K/uL (1.8-8.0); Basophils % 0.9 % (0-1.3); Eosinophils % 4.8 % (0-4.4); Hematocrit 44.7 % (39.6-49.0); Hemoglobin 15.7 g/dL (13.6-17.9); Lymphocytes % 37.3 % (15.3-44.8); MCH 30.1 pg (27.0-35.0); MCHC 35.1 g/dL (32.0-36.0); MCV 85.6 fL (80-100); MPV 9.4 fL (7.6-11.3); Monocytes % 7.4 % (3.3-12.3); Neutrophils % 49.6 % (41.7-73.7); Nucleated Red Blood Cells % 0.1 % (0-0); Platelets 242 thou/uL (152-406); RBC Red Blood Cell Count 5.23 M/uL (4.33-5.43)
[2025-01-19 23:41] LABS: ALT/SGPT 34 U/L (16-61); AST/SGOT 15 U/L (15-37); Albumin 3.8 g/dL (3.4-5.0); Albumin/Globulin Ratio 1.2 (1.1-1.8); Alkaline Phosphatase 96 U/L (45-117); Anion Gap 9.7 mEq/L (5.0-15.0); BUN Blood Urea Nitrogen 24 mg/dL (7-18); Bicarbonate 26 mEq/L (21-32); Bilirubin Total 0.5 mg/dL (0.2-1.0); Globulin 3.2 g/dL (2.3-3.5); Glomerular Filtration Rate 81 ml/min (=/>90); Glucose Level 100 mg/dL (74-106); Potassium 3.7 mEq/L (3.5-5.1); Sodium Level 140 mEq/L (136-145)
[2025-01-20 00:10] LABS: Troponin High Sensitivity < 3.0 pg/mL (<58.9)
--- NOTE | 2025-01-20 00:28 | RAD REPORT ---
Clinical Indication: Bed Name: 18; PAIN Comparison: March 20, 2023 Technique: Multi-detector CT imaging of the cervical spine is performed. Coronal and sagittal reconst ructions were performed and provided as separate series. All CT scans at this location are performed using dose optimization techniques as appropriate to perf orm the study. Radiation dose reduction technique was utilized including one or more of the following: Automated exp osure control, adjustment of the mA and/or kV according to patient size and use of iterative reconstruction technique. CT Radiation Dose DLP 268.8 mGy-cm FINDINGS: ALIGNMENT AND GENERAL ASSESSMENT: There is normal alignment of the cervical spine. There are no fract ures or subluxations. The craniocervical junction is normal. The atlanto-dental alignment appears unremarkable. The posterior elements and spinous processes are unremarkable. The facet joint, spinola minar and spinous process alignment are normal. DISK SPACES AND SOFT TISSUES: The prevertebral soft tissues are normal. C2-C3 to C7-T1 disc space levels show no definite disc pr otrusions on CT. There is no central or foraminal stenosis. MRI is the gold standard to assess for disk disease. VISUALIZED LUNG APICES: Unremarkable. CT myelogram or MRI of the cervical spine may be performed, if there is further concern. IMPRESSION: No acute fractures or subluxations of the cervical spine. Electronically signed by: Darrius Stern MD 01/20/2025 12:24 AM CDT RP Due to temporary technical issues with the [employer] reporting system, reports are being mark d by the in-house radiologist without review as a courtesy to ensure prompt reporting the interpreting radiologist is fully responsible for the content of the report. Transcribed Date/Time: 01/20/2025 12:28 AM
--- NOTE | 2025-01-20 00:33 | ER ---
Nurse's Notes [facility] Name: Dle Peoples Age: 45 yrs Sex: Male : 1980 Arrival Date: 01/19/2025 Time: 21:46 Bed 18 Private MD: Diagnosis: Cervical disc disorder with radiculopathy;Unspecified symptoms and signs involving the musculoskeletal system;Torticollis Presentation: 01/19 22:02 Coronavirus screen: Vaccine status: Patient reports being unvaccinated. Ebola Screen: kd3 No symptoms or risks identified at this time. Initial Sepsis Screen: Does the patient meet any 2 criteria? No. Patient's initial sepsis screen is negative. Does the patient have a suspected source of infection? No. Patient's initial sepsis screen is negative. Risk Assessment: Do you want to hurt yourself or someone else? Patient reports no desire to harm self or others. 22:02 Method Of Arrival: Ambulatory kd3 22:03 Chief complaint: Patient states: I am having some pain in my shoulder that started on kd3 . It started in the left shoulder and has progressed to my neck. It is hard to turn my neck and i am so stiff. I don't recall injuring myself. Onset of symptoms was January 17, 2025. 22:03 Acuity: ISRA 4 kd3 Triage Assessment: 22:03 General: Appears uncomfortable, Behavior is calm, cooperative. Pain: Complains of pain kd3 in face, anterior aspect of left shoulder, left posterior aspect of neck and left lateral aspect of neck. Neuro: Level of Consciousness is awake, alert, obeys commands, Oriented to person, place, time, situation. Historical: - Allergies: 22:03 No Known Allergies; kd3 - Immunization history:: Adult Immunizations up to date. - Infectious Disease History:: Denies. - Social history:: Smoking status: Patient denies any tobacco usage or history of. - Family history:: not pertinent. Screenin:00 [facility] ED Fall Risk Assessment (Adult) History of falling in the last 3 months, rg5 including since admission No falls in past 3 months (0 pts) Confusion or Disorientation No (0 pts) Intoxicated or Sedated No (0 pts) Impaired Gait No (0 pts) Mobility Assist Device Used No (0 pt) Altered Elimination No (0 pt) Score/Fall Risk Level 0 - 2 = Low Risk Oriented to surroundings, Maintained a safe environment, Hourly rounding (assess needs \T\ fall precautionary measures) done. Abuse screen: Denies threats or abuse. Nutritional screening: No deficits noted. Tuberculosis screening: No symptoms or risk factors identified. Assessment: 23:00 General: Appears in no apparent distress. uncomfortable, Behavior is calm, cooperative, rg5 appropriate for age. 23:00 Pain: Complains of pain in right trapezius Pain radiates to posterior cervical area rg5 Pain currently is 8 out of 10 on a pain scale. Quality of pain is described as aching, Pain began 2-3 days ago. Neuro: Level of Consciousness is awake, alert, obeys commands, Oriented to person, place, time, situation. Cardiovascular: Denies chest pain, Patient's skin is warm and dry. Respiratory: Airway is patent Trachea midline Respiratory effort is even, unlabored. GI: Abdomen is flat, non-distended, Abd is soft and non tender. : No signs and/or symptoms were reported regarding the genitourinary system. EENT: No deficits noted. Derm: Skin is intact, Skin is dry, Skin is normal, Skin temperature is warm. Musculoskeletal: Circulation, motion, and sensation intact. Range of motion: intact in all extremities. Vital Signs: 22:02 Pulse 61; Resp 16; Temp 98.2; Pulse Ox 98% on R/A; Weight 92.99 kg; Height 5 ft. 11 in. kd3 ; Pain 7/10; 22:03 BP 136 / 80; kd3 23:00 BP 118 / 80; Pulse 63; Resp 18; Temp 98; Pulse Ox 98% on R/A; Pain 8/10; rg5 01/20 00:25 BP 121 / 83; Pulse 61; Resp 18; Pulse Ox 98% on R/A; Pain 5/10; rg5 01:00 BP 114 / 77; Pulse 60; Resp 18; Pulse Ox 98% on R/A; Pain 3/10; rg5 01/19 22:02 Body Mass Index 28.59 (92.99 kg, 180.34 cm) 3 01/19 22:02 Pain Scale: Adult kd3 23:00 Pain Scale: Adult rg5 01/20 00:25 Pain Scale: Adult rg5 01:00 Pain Scale: Adult rg5 ED Course: 01/19 21:48 Patient arrived in ED. mr 22:01 Josiah Qureshi MD is Attending Physician. bong 22:03 Arm band placed on right wrist. kd3 22:05 Triage completed. kd3 22:44 Jony Parker, DIONY is Primary Nurse. rg5 23:00 Patient has correct armband on for positive identification. Bed in low position. Call rg5 light in reach. Side rails up X 1. Door closed. Noise minimized. Warm blanket given. 23:00 No provider procedures requiring assistance completed. Inserted saline lock: 20 gauge rg5 in right antecubital area, using aseptic technique. Blood collected. Flushed with 10 mL NS. Patient maintains SpO2 saturation greater than 95% on room air. 23:28 CT C Spine In Process Unspecified. EDMS 23:52 Shoulder Left (2 View) XRAY In Process Unspecified. EDMS 01/20 01:21 IV discontinued, bleeding controlled, No redness/swelling at site. Pressure dressing rg5 applied. 01:22 Provided Education on: post er care done. rg5 Administered Medications: 01/19 23:10 Drug: NS 0.9% IV 1000 ml IV at 1 bolus Per protocol; to be given as a bolus over 60 rg5 minutes Route: IV; Rate: 1 bolus; Site: right antecubital; 01/20 00:00 Follow up: IV Status: Completed infusion; IV Intake: 1000ml rg5 01/19 23:10 Drug: Ondansetron IVP 4 mg IVP once; over 2 minutes Route: IVP; Site: right antecubital;rg5 23:46 Follow up: Response: No adverse reaction rg5 23:10 Drug: Diazepam PO 10 mg PO once Route: PO; rg5 23:46 Follow up: Response: No adverse reaction; Pain is decreased rg5 23:13 Drug: Ketorolac IVP 30 mg IVP once Route: IVP; Site: right antecubital; rg5 23:46 Follow up: Response: No adverse reaction; Pain is decreased rg5 23:14 Drug: Decadron - Dexamethasone IVP 10 mg IVP once Route: IVP; Site: right antecubital; rg5 23:46 Follow up: Response: No adverse reaction; Pain is decreased rg5 23:14 Drug: fentaNYL (PF) IVP 50 mcg IVP once Route: IVP; Site: right antecubital; rg5 23:45 Follow up: Response: No adverse reaction; Pain is decreased rg5 Medication: 23:00 VIS not applicable for this client. rg5 Intake: 01/20 00:00 IV: 1000ml; Total: 1000ml. rg5 Outcome: 00:33 Discharge ordered by . bong 01:21 Discharged to home ambulatory, rg5 01:21 Condition: stable 01:21 Discharge instructions given to patient, Instructed on discharge instructions, Demonstrated understanding of instructions, Prescriptions given X 4, 01:24 Patient left the ED. rg5 Signatures: Dispatcher [employer] EDMS Josiah Qureshi MD MD cha Rivera, Mary, [facility] Gurwinder mr Nettie Emery, RN RN kd3 Jony Parker, RN RN rg5
--- NOTE | 2025-01-20 00:33 | EDPHYS ---
Physician Documentation [facility] Name: Del Peoples Age: 45 yrs Sex: Male : 1980 Arrival Date: 01/19/2025 Time: 21:46 Bed 18 Private MD: ZARA Physician Josiah Qureshi HPI: 01/19 23:37 This 45 yrs old Male presents to ER via Ambulatory with complaints of Shoulder bong Pain, Neck pain. 23:37 The patient or guardian complains of decreased range of motion, pain, spasm, stiffness, bong tightness. right shoulder, right trapezius, left shoulder, left trapezius, right clavicle and left clavicle. Context: The problem was sustained at an unknown site, resulted from lifting or carrying, a heavy object. Modifying factors: the symptoms are alleviated by remaining still, The symptoms are aggravated by lifting weight, movement, rotation of arm. Associated signs and symptoms: The patient has no apparent associated signs or symptoms. Severity of symptoms: At their worst the symptoms were moderate, in the emergency department the symptoms are unchanged. The patient has not experienced similar symptoms in the past. Historical: - Allergies: 22:03 No Known Allergies; kd3 - Immunization history:: Adult Immunizations up to date. - Infectious Disease History:: Denies. - Social history:: Smoking status: Patient denies any tobacco usage or history of. - Family history:: not pertinent. ROS: 23:37 Constitutional: Negative for fever, chills, and weight loss, Eyes: Negative for injury, bong pain, redness, and discharge, ENT: Negative for injury, pain, and discharge, Neck: Negative for injury, pain, and swelling, Cardiovascular: Negative for chest pain, palpitations, and edema, Respiratory: Negative for shortness of breath, cough, wheezing, and pleuritic chest pain, Abdomen/GI: Negative for abdominal pain, nausea, vomiting, diarrhea, and constipation, : Negative for injury, bleeding, discharge, and swelling, MS/Extremity: Negative for injury and deformity, Skin: Negative for injury, rash, and discoloration, Neuro: Negative for headache, weakness, numbness, tingling, and seizure, Psych: Negative for depression, anxiety, suicide ideation, homicidal ideation, and hallucinations, Allergy/Immunology: Negative for hives, rash, and allergies, Endocrine: Negative for neck swelling, polydipsia, polyuria, polyphagia, and marked weight changes, Hematologic/Lymphatic: Negative for swollen nodes, abnormal bleeding, and unusual bruising, 23:37 Back: Positive for injury or acute deformity, decreased range of motion, pain at rest, Exam: 23:37 Constitutional: This is a well developed, well nourished patient who is awake, alert, bong and in no acute distress. Head/Face: Normocephalic, atraumatic. Eyes: Pupils equal round and reactive to light, extra-ocular motions intact. Lids and lashes normal. Conjunctiva and sclera are non-icteric and not injected. Cornea within normal limits. Periorbital areas with no swelling, redness, or edema. ENT: Nares patent. No nasal discharge, no septal abnormalities noted. Tympanic membranes are normal and external auditory canals are clear. Oropharynx with no redness, swelling, or masses, exudates, or evidence of obstruction, uvula midline. Mucous membranes moist. Neck: Trachea midline, no thyromegaly or masses palpated, and no cervical lymphadenopathy. Supple, full range of motion without nuchal rigidity, or vertebral point tenderness. No Meningismus. Chest/axilla: Normal chest wall appearance and motion. Nontender with no deformity. No lesions are appreciated. Cardiovascular: Regular rate and rhythm with a normal S1 and S2. No gallops, murmurs, or rubs. Normal PMI, no JVD. No pulse deficits. Respiratory: Lungs have equal breath sounds bilaterally, clear to auscultation and percussion. No rales, rhonchi or wheezes noted. No increased work of breathing, no retractions or nasal flaring. Abdomen/GI: Soft, non-tender, with normal bowel sounds. No distension or tympany. No guarding or rebound. No evidence of tenderness throughout. Back: No spinal tenderness. No costovertebral tenderness. Full range of motion. Skin: Warm, dry with normal turgor. Normal color with no rashes, no lesions, and no evidence of cellulitis. MS/ Extremity: Pulses equal, no cyanosis. Neurovascular intact. Full, normal range of motion., bilateral aka Neuro: Awake and alert, GCS 15, oriented to person, place, time, and situation. Cranial nerves II-XII grossly intact. Motor strength 5/5 in all extremities. Sensory grossly intact. Cerebellar exam normal. Normal gait. Psych: Awake, alert, with orientation to person, place and time. Behavior, mood, and affect are within normal limits. 23:37 ECG was reviewed by the Attending Physician. Vital Signs: 22:02 Pulse 61; Resp 16; Temp 98.2; Pulse Ox 98% on R/A; Weight 92.99 kg; Height 5 ft. 11 in. kd3 ; Pain 7/10; 22:03 BP 136 / 80; kd3 23:00 BP 118 / 80; Pulse 63; Resp 18; Temp 98; Pulse Ox 98% on R/A; Pain 8/10; rg5 01/20 00:25 BP 121 / 83; Pulse 61; Resp 18; Pulse Ox 98% on R/A; Pain 5/10; rg5 01:00 BP 114 / 77; Pulse 60; Resp 18; Pulse Ox 98% on R/A; Pain 3/10; rg5 01/19 22:02 Body Mass Index 28.59 (92.99 kg, 180.34 cm) kd3 01/19 22:02 Pain Scale: Adult kd3 23:00 Pain Scale: Adult rg5 01/20 00:25 Pain Scale: Adult rg5 01:00 Pain Scale: Adult rg5 MDM: 01/19 22:01 Medical Screening Exam initiated bong 23:42 Differential diagnosis: tendonitis. Data reviewed: vital signs, nurses notes, lab test [facility] result(s), EKG, radiologic studies, CT scan, plain films. Consideration of Admission/Observation Escalation of care including admission/observation considered. I considered the following discharge prescriptions or medication management in the emergency department Medications were administered in the Emergency Department. See MAR. Independent interpretation of the following test(s) in the Emergency Department EKG: See my EKG interpretation above. Care significantly affected by the following chronic conditions: no hx. 01/19 22:39 Order name: Troponin High Sensitivity; Complete Time: 00:32 [facility] 01/19 22:39 Order name: CBC with Diff; Complete Time: 23:52 [facility] 01/19 22:39 Order name: CMP; Complete Time: 00:32 [facility] 01/19 22:39 Order name: CT C Spine [facility] 01/19 23:23 Order name: Shoulder Left (2 View) XRAY [facility] 01/19 22:39 Order name: EKG - Nurse/Tech; Complete Time: 23:45 bong EC:37 Rate is 81 beats/min. Rhythm is regular. QRS [place] is Normal. [place] interval is normal. QRS bong interval is normal. QT interval is normal. No Q waves. T waves are Normal. No ST changes noted. Clinical impression: NSR w/ Non-specific ST/T Changes and No evidence of ischemia. Interpreted by me. Reviewed by me. Administered Medications: 23:10 Drug: NS 0.9% IV 1000 ml IV at 1 bolus Per protocol; to be given as a bolus over 60 rg5 minutes Route: IV; Rate: 1 bolus; Site: right antecubital; 01/20 00:00 Follow up: IV Status: Completed infusion; IV Intake: 1000ml rg5 01/19 23:10 Drug: Ondansetron IVP 4 mg IVP once; over 2 minutes Route: IVP; Site: right antecubital;rg5 23:46 Follow up: Response: No adverse reaction rg5 23:10 Drug: Diazepam PO 10 mg PO once Route: PO; rg5 23:46 Follow up: Response: No adverse reaction; Pain is decreased rg5 23:13 Drug: Ketorolac IVP 30 mg IVP once Route: IVP; Site: right antecubital; rg5 23:46 Follow up: Response: No adverse reaction; Pain is decreased rg5 23:14 Drug: Decadron - Dexamethasone IVP 10 mg IVP once Route: IVP; Site: right antecubital; rg5 23:46 Follow up: Response: No adverse reaction; Pain is decreased rg5 23:14 Drug: fentaNYL (PF) IVP 50 mcg IVP once Route: IVP; Site: right antecubital; rg5 23:45 Follow up: Response: No adverse reaction; Pain is decreased rg5 Disposition Summary: 01/20/25 00:33 Discharge Ordered Notes: Location: Home bong Problem: new bong Symptoms: have improved bong Condition: Stable bong Diagnosis - Cervical disc disorder with radiculopathy bong - Unspecified symptoms and signs involving the musculoskeletal system bong - Torticollis bong Followup: bong - With: Private Physician - When: 2 - 3 days - Reason: Recheck today's complaints, Continuance of care, Re-evaluation by your physician Discharge Instructions: - Discharge Summary Sheet bong - Cervical Radiculopathy bong - Musculoskeletal Pain bong - Acute Torticollis, Adult bong - Cervical Radiculopathy, [id number] [facility] Forms: - Medication Reconciliation Form bong - Antibiotic Education bong - Prescription Opioid Use bong - Patient Portal Instructions [facility] - Leadership Thank You Letter bong - Work release form rg5 Prescriptions: - diclofenac sodium 50 mg Oral tablet, delayed release (enteric coated) - take 1 tablet ORAL route 3 times per day; 30 tablet; Refills: 0, Product [facility] Selection Permitted - methocarbamol 750 mg Oral tablet - take 1 tablet ORAL route 4 times per day; 28 tablet; Refills: 0, Product [facility] Selection Permitted - Tylenol-Codeine #3 300mg-30mg Oral tablet - take 2 tablets ORAL route every 6 hours As needed; 20 tablet; Refills: 0, [facility] Product Selection Permitted - Dexamethasone 4mg Oral tablet - take 1 tablet ORAL route daily for 4 days; 4 tablet; Refills: 0, Product bong Selection Permitted Signatures: Dispatcher [employer] EDMS Josiah Qureshi MD MD cha Doucette, Kyli RN RN kd3 Jony Parker, RN RN rg5 Corrections: (The following items were deleted from the chart) 22:39 22:39 Troponin High Sensitivity+C.LAB.BRZ ordered. EDMS EDMS 22:39 22:39 CBC+H.LAB.BRZ ordered. EDMS EDMS 22:39 22:39 COMPREHENSIVE METABOLIC PANEL+C.LAB.BRZ ordered. EDMS EDMS
[2025-01-20 02:08] VITALS: O2SAT 98
--- NOTE | 2025-01-20 02:09 | RAD REPORT ---
EXAM DESCRIPTION: Shoulder Left 2+ Views CLINICAL HISTORY: 45 years Male Left shoulder pain. COMPARISON: None. TECHNIQUE: 2 view study of the left shoulder were performed. FINDINGS: Satisfactory articulation humeral head with glenoid fossa. Degenerative spurring inferior humeral hea d. No fracture seen. Normal bony mineralization. No erosive or lytic lesion is seen. IMPRESSION: No acute fracture or dislocation seen. Mild degenerative change. Electronically signed by: Shannon Knox MD 01/20/2025 12:45 AM CDT RP Due to temporary technical issues with the PACS/[employer] reporting system, reports are being mark d by the in-house radiologist without review as a courtesy to ensure prompt reporting the interpreting radiologist is fully responsible for the content of the report. Transcribed Date/Time: 01/20/2025 2:09 AM
[2025-01-20 02:10] VITALS: TEMP 98
[2025-01-20 02:13] VITALS: BP 114/77
--- NOTE | 2025-01-21 11:59 | EKG ---
Test Date: 2025-01-19 Test Time: 23:42:28 Storage Engineer: CLAY MEASUREMENT RESULTS: Intervals: Rate: 53 ND: 172 QRSD: 90 QT: 422 QTc: 395 [place]: P: 46 ND: 172 QRS: 25 T: 22 INTERPRETIVE STATEMENTS: Sinus bradycardia Possible Left atrial enlargement Cannot rule out Anterior infarct, age undetermined Abnormal ECG Compared to ECG 03/25/2023 09:03:15 Myocardial infarct finding now present Sinus rhythm no longer present Early repolarization no longer present Electronically Signed On 01-21-25 11:56:48 CDT by Jluis Taylor
== END 2025-01-20 01:24 | disposition home or self-care (01) ==
LOC: ER 21:46
DX: M50.10 Cervical disc disorder with radiculopathy, unspecified cervical region (principal); M43.6 Torticollis
CPT/HCPCS: 96361; 93005; 85025; 36415; 84484; 80053; 72125; 73030; 96375; 96374; 99284; J3010; J1100; J2405; J7030